=== PATIENT | female | born 1970 | race Caucasian/White ===

== ENCOUNTER → 2016-09-28 | Outpatient (CLI) | payer OTHER | LOC: BMCIMAGING 15:02 | PROVIDERS: ATTEND Family Medicine | DX: M51.36 Other intervertebral disc degeneration, lumbar region (principal) ==

== ENCOUNTER → 2017-06-08 | Outpatient (CLI) | payer OTHER | LOC: FIMAGING 07:47 | PROVIDERS: ATTEND Obstetrics & Gynecology | DX: D25.0 Submucous leiomyoma of uterus (principal); N83.201 Unspecified ovarian cyst, right side ==

== ENCOUNTER → 2017-12-21 | Outpatient (CLI) | payer OTHER ==
[~2017-12-21] MED LIST: IOPAMIDOL (ISOVUE 370) 100 ML BTL IV ONE; METOPROLOL TARTRATE 5 MG/5 ML INJ ONE
== END ==
LOC: FIMAGING 12:12
DX: R94.39 Abnormal result of other cardiovascular function study (principal); K76.0 Fatty (change of) liver, not elsewhere classified
CPT/HCPCS: Q9967